=== PATIENT | female | born 1965 | race Asian ===

== ENCOUNTER 2022-02-27 23:48 | Emergency (ER) | payer BC ==
[~2022-02-27] VITALS: Ht 154.9 cm; Wt 63.5 kg
[2022-02-28 00:32] VITALS: BP_SYST 154
[2022-02-28] MEDS ORDERED: KETOROLAC TROMETHAMINE 15 MG VIAL IVP ONE (02:15)
[2022-02-28] MEDS ORDERED: DIPHENHYDRAMINE INJ 50 MG/ML VIAL IVP ONE (02:15)
[2022-02-28] MEDS ORDERED: NACL 0.9% 1,000 ML IV ONE (02:15)
[2022-02-28] MEDS ORDERED: PROCHLORPERAZINE EDISYLATE 10 MG/2 ML VIAL IVP ONE (02:15)
[2022-02-28 03:02] LABS: BASOPHILS # (AUTO) 0.3 K/uL (0.0-0.2); BASOPHILS % (AUTO) 3.5 % (0.0-2.0); EOSINOPHILS # (AUTO) 0.1 K/uL (0.0-0.4); EOSINOPHILS % (AUTO) 1.9 % (0.0-4.0); HEMATOCRIT 40.2 % (36-48); HEMOGLOBIN 13.7 g/dL (12.0-16.0); LYMPHOCYTES # (AUTO) 1.7 K/uL (1.0-5.5); LYMPHOCYTES % (AUTO) 21.1 % (20.5-51.5); MEAN CORPUSCULAR HEMOGLOBIN 30 pg (27-31); MEAN CORPUSCULAR HGB CONC 34 % (32-36); MEAN CORPUSCULAR VOLUME 87 fL (79.0-98.0); MONOCYTES # (AUTO) 0.4 K/uL (0.0-1.0); MONOCYTES % (AUTO) 4.7 % (1.7-9.3); NEUTROPHILS # (AUTO) 5.5 K/uL (1.8-7.7); NEUTROPHILS % (AUTO) 68.8 % (40.0-70.0); PLATELET COUNT (AUTO) 319 K/uL (130-430); RED BLOOD CELL COUNT(AUTO) 4.62 MIL/uL (4.2-6.2); RED CELL DISTRIBUTION WIDTH 13.1 % (9.0-15.0); WHITE BLOOD COUNT (AUTO) 7.9 K/uL (4.8-10.8)
[2022-02-28 03:11] LABS: ANION GAP 12 (5-15); CHLORIDE 102 mmol/L (98-107); GLUCOSE 139 mg/dL (70-99)
[2022-02-28 03:12] LABS: ASPARTATE AMINOTRANSFERASE 35 U/L (10-37); CALCIUM 10.2 mg/dL (8.4-11.0); CREATININE 0.87 mg/dL (0.55-1.30); GFR AFRICAN AMERICAN 87 mL/min (>90); TOTAL BILIRUBIN 0.4 mg/dL (0.0-1.0); UREA NITROGEN, BLOOD 16 mg/dL (8-21)
[2022-02-28 03:13] LABS: ALANINE AMINOTRANSFERASE 64 U/L (12-78); ALBUMIN 4.6 g/dL (3.4-4.8)
[2022-02-28 05:29] VITALS: BP_SYST 143
== END 2022-02-28 05:30 | disposition home or self-care (01) ==
LOC: SED 23:48
DX: R07.89 Other chest pain (principal); R51.9 Headache, unspecified; R42 Dizziness and giddiness; R11.0 Nausea; K21.9 Gastro-esophageal reflux disease without esophagitis; I10 Essential (primary) hypertension; E78.5 Hyperlipidemia, unspecified; Z72.0 Tobacco use; Z79.899 Other long term (current) drug therapy
CPT/HCPCS: 99285; 80053; 85025; 84484; 36415; 96374; 71045; 96375; 96361; 93005; J1200; J1885; J0780; J7030